=== PATIENT | female | born 1975 | race Caucasian/White ===

== ENCOUNTER 2016-04-12 08:31 | Emergency (ER) | payer SELFPAY ==
[2016-04-12] MEDS ORDERED: LIDOCAINE 2% VISC 15 ML UDC ONE (09:52)
[2016-04-12] MEDS ORDERED: ALU/MAG/SIM 30 ML UDC ONE (09:52)
[2016-04-12] MEDS ORDERED: FAMOTIDINE 20 MG TAB ONE (09:53)
[2016-04-12] MEDS ORDERED: ONDANSETRON ODT 4 MG TAB ONE (09:53)
== END 2016-04-12 12:13 | disposition home or self-care (01) ==
LOC: ER 08:31
DX: K25.3 Acute gastric ulcer without hemorrhage or perforation (principal); B96.81 Helicobacter pylori [H. pylori] as the cause of diseases classified elsewhere; F17.210 Nicotine dependence, cigarettes, uncomplicated
CPT/HCPCS: 36415; 80053; 81001; 83690; 84703; 85025; 86677; 87804; 87880